=== PATIENT | male | born 1975 | race Caucasian/White ===

== ENCOUNTER 2016-07-25 10:44 | Emergency (ER) | payer BC, OTHER ==
--- NOTE | ~2016-07-25 | US67 ---
[facility] A Service of [facility] RADIOLOGY TEXT RESULTS PATIENT: SCOTT STEVENSON LOCATION: SED : 75 UNIT #: [id number] AGE: [address]: Carlos Campbell MD SEX: M ORDER DR: [id number] [place] [address] [id number] E MR#: [id number] Acc #: [id number] NAME: SCOTT STEVENSON : 1975 SEX: M STUDY DATE/TIME: 07/25/2016 15:15 UNIT: SED ROOM: STUDY DESCRIPTION: Gallbladder Attending Physician: Carlos Campbell M.D. Ordering Physician: Carlos Campbell M.D. Primary Care Physician: Belinda Smith M.D. MEDICAL IMAGING REPORT This report is preliminary unless electronic signature is present. EXAM Gallbladder ultrasound, 07/25/2016. HISTORY Nausea and diarrhea with abdominal pain for the last 2 weeks. FINDINGS Sonographic evaluation was performed of the right upper quadrant in multiple planes. Comparison is made with CT abdomen, 01/21/2016. The tail of the pancreas is obscured by bowel gas. The visualized pancreas is normal. The liver parenchyma is homogeneous without a focal mass. The right kidney is morphologically normal and nonobstructed. The main portal vein is patent by Doppler. The common duct is difficult to see, but appears to be normal, measuring about 2 mm in internal diameter. No gallstones are seen, and there is no gallbladder wall thickening. There may be a small amount of gallbladder sludge. IMPRESSION There may be a small amount of gallbladder sludge, but no definite gallstones are seen, and there is no gallbladder wall thickening or biliary obstruction. Dictated by... Carlos Sellers Jr., M.D. [facility] A Service [facility] RADIOLOGY TEXT RESULTS PATIENT: SCOTT STEVENSON LOCATION: SED : 75 UNIT #: [id number] AGE: [address]: Carlos Campbell MD SEX: M ORDER DR: THIS IS AN ELECTRONICALLY VERIFIED REPORT Carlos Sellers Jr., M.D. at 07/27/2016 8:11 AM KELLY/obdulia TD: 07/25/2016 18:50 JOB #: [id number] MEDICAL IMAGING REPORT
--- NOTE | ~2016-07-25 | EKG ---
PATIENT: SCOTT STEVENSON UNIT #: [id number] Ventricular Rate: 71 BPM Atrial Rate: 71 BPM P-R Interval: 156 ms QRS Duration: 94 ms Q-T Interval: 378 ms QTC Calculation(Bezet): 410 ms P [place]: 56 degrees Calculated R [place]: 46 degrees Calculated T [place]: 44 degrees Diagnosis Line: Normal sinus rhythm Diagnosis Line: Normal ECG Diagnosis Line: When compared with ECG of 10-JUN-2015 18:28, Diagnosis Line: No significant change was found Diagnosis Line: Confirmed by ANGELICA LUNA MD ([id number]) on Diagnosis Line: 07/26/2016 12:22:23 PM INTERPRETING MD: RANDY
--- NOTE | ~2016-07-25 | EKG ---
PATIENT: SCOTT STEVENSON UNIT #: [id number] Ventricular Rate: 67 BPM Atrial Rate: 67 BPM P-R Interval: 146 ms QRS Duration: 92 ms Q-T Interval: 376 ms QTC Calculation(Bezet): 397 ms P [place]: 55 degrees Calculated R [place]: 29 degrees Calculated T [place]: 37 degrees Diagnosis Line: Normal sinus rhythm Diagnosis Line: Normal ECG Diagnosis Line: When compared with ECG of 25-JUL-2016 09:52, Diagnosis Line: (unconfirmed) Diagnosis Line: No significant change was found Diagnosis Line: Confirmed by SOBEIDA HAMM MD ([id number]) on 07/25/2016 Diagnosis Line: 6:04:27 PM INTERPRETING MD: HANSEL CORDOVA
--- NOTE | ~2016-07-25 | CR63 ---
[facility] A Service of [facility] RADIOLOGY TEXT RESULTS PATIENT: SCOTT STEVENSON LOCATION: SED : 75 UNIT #: [id number] AGE: [address]: Carlos Campbell MD SEX: M ORDER DR: [id number] [place] [id number] E MR#: [id number] Acc #: [id number] NAME: SCOTT STEVENSON : 1975 SEX: M STUDY DATE/TIME: 07/25/2016 10:44 UNIT: SED ROOM: STUDY DESCRIPTION: CR Chest 2 View Attending Physician: Carlos Campbell M.D. Ordering Physician: Carlos Campbell M.D. Primary Care Physician: Belinda Smith M.D. MEDICAL IMAGING REPORT This report is preliminary unless electronic signature is present. EXAM Chest PA and lateral HISTORY Chest pain for 2 weeks, dizziness and epigastric pain worse this morning. PA and lateral views are obtained. Cardiovascular configuration of the chest appears normal and the lungs are clear. CONCLUSION No active disease. Dictated by... Kale Ovalle M.D. THIS IS AN ELECTRONICALLY VERIFIED REPORT Kale Ovalle M.D. at 07/25/2016 5:06 PM DEVIN/naima TD: 07/25/2016 12:43 JOB #: [id number] MEDICAL IMAGING REPORT
[~2016-07-25 10:44] MED LIST: NO MEDICATIONS
[2016-07-25 10:57] LABS: BASOPHIL# 0.1 X10e3 (0-0.3); BASOPHIL% 0.7 % (0-2.5); DIFF IND NO; EOSINOPHIL# 0.3 X10e3 (0-0.7); EOSINOPHIL% 3.3 % (0.0-7.0); HEMOGLOBIN 15.8 gm/dL (13.0-16.0); LYMPHOCYTE# 1.8 X10e3 (1.0-3.5); MEAN CELL VOLUME 88.9 FL (83-96); MEAN CORPUSCULAR HEMOGLOBIN 29.9 PG (28-34); MEAN CORPUSCULAR HGB CONC 33.7 g/dL (30-36); MEAN PLATELET VOLUME 8.6 FL (6.5-11.5); MONOCYTE# 0.7 X10e3 (0-1.0); MONOCYTE% 7.5 % (3.0-12.0); NEUTROPHIL# 6.1 X10e3 (1.5-7.1); NEUTROPHIL% 68.5 % (40-75); PLATELET COUNT 235 X10e3 (140-420); RED BLOOD COUNT 5.29 X10e (3.90-5.60); RED CELL DISTRIBUTION WIDTH 13.2 % (11.0-15.5); WHITE BLOOD COUNT 8.9 X10e3 (4.0-10.5)
[2016-07-25 11:05] LABS: POC - CKMB <1.0 ng/mL (0.0-7.9); POC - MYOGLOBIN 51.1 ng/mL (0.0-169.0); POC - TROPONIN <0.05 ng/mL (<=0.05)
[2016-07-25 11:16] LABS: ALBUMIN SERUM 4.5 g/dL (3.5-5.0); ALKALINE PHOSPHATASE 57 U/L (32-92); ALT (SGPT) 26 U/L (10-40); AST (SGOT) 23 U/L (10-42); BILIRUBIN,TOTAL 0.4 mg/dL (0.2-2.0); BLOOD UREA NITROGEN 13 mg/dL (9-23); BUN/CREATININE RATIO 18.57; CALCIUM SERUM 9.5 mg/dL (8.4-10.2); CARBON DIOXIDE 30 mmol/L (22-31); CHLORIDE 102 mmol/L (100-111); CREATININE SERUM 0.7 mg/dL (0.6-1.4); GLOM FILT RATE Estimated ABOVE60 mL/min (>60); GLUCOSE FASTING 105 mg/dL (70-110); LIPASE 33 U/L (22-51); PROTEIN TOTAL SERUM 7.5 g/dL (6.0-8.3); SODIUM 140 mmol/L (135-145)
[2016-07-25 11:31] LABS: BILIRUBIN, DIRECT <0.1 mg/dL (0.0-0.2); BILIRUBIN,INDIRECT 0.3 mg/dL (0.0-0.9)
[2016-07-25 13:32] LABS: POC - CKMB 1.2 ng/mL (0.0-7.9); POC - MYOGLOBIN 59.1 ng/mL (0.0-169.0); POC - TROPONIN <0.05 ng/mL (<=0.05)
[2016-10-06] MEDS ORDERED: OMEPRAZOLE40 M1 PO (13:38)
[2016-10-06] MEDS ORDERED: PROBIOTIC1 EAC5 PO (13:39)
[2016-10-06] MEDS ORDERED: ALEVE220 M1 PO (13:39)
[2016-10-07] MEDS ORDERED: OMEPRAZOLE40 M1 PO (07:57)
== END 2016-07-25 16:17 | disposition home or self-care (01) ==
LOC: SED 10:44
PROVIDERS: Emergency Medicine
DX: K29.00 Acute gastritis without bleeding (principal); E78.5 Hyperlipidemia, unspecified; I10 Essential (primary) hypertension; Z91.018 Allergy to other foods
CPT/HCPCS: 36415; 71020; 76705; 80048; 80076; 82553; 83690; 83874; 84484; 85025; 93005; 99284

== ENCOUNTER → 2016-08-11 | Outpatient (CLI) | payer BC ==
[~2016-08-11] MED LIST changes: +ALEVE220 M1 PO; +OMEPRAZOLE40 M1 PO; +PROBIOTIC1 EAC5 PO
--- NOTE | ~2016-08-11 | NM22 ---
[facility] A Service of [facility] RADIOLOGY TEXT RESULTS PATIENT: SCOTT STEVENSON LOCATION: UC : 75 UNIT #: [id number] AGE: [address]: Belinda Smith MD SEX: M ORDER DR: [id number] [facility] [address]. [place], [place] [address] [id number] O MR#: [id number] Acc #: [id number] NAME: SCOTT STEVENSON : 1975 SEX: M STUDY DATE/TIME: 08/11/2016 9:44 UNIT: CNUC ROOM: STUDY DESCRIPTION: LORI Hepatobiliary W GB Pharm Attending Physician: Belinda Smith M.D. Referring Physician: Belinda Smith M.D. Ordering Physician: Belinda Smith M.D. Primary Care Physician: Belinda Smith M.D. MEDICAL IMAGING REPORT This report is preliminary unless electronic signature is present EXAM Hepatobiliary scan. HISTORY Abdominal bloating, nausea, epigastric abdominal pain beginning 5 weeks ago. PROCEDURE Patient was administered 5.7 mCi technetium-99m Choletec. Imaging of the upper abdomen was performed for 60 minutes. Then patient was administered 1.7 mcg of Kinevac IV, per protocol. COMPARISON STUDIES Right upper quadrant ultrasound, 07/25/2016. FINDINGS Gallbladder fills by 30 minutes. Liver shows symmetric extraction and excretion of radiotracer. There is activity in the biliary system and bowel. Ejection fraction is 89% at 30 minutes. IMPRESSION Normal. Dictated by... Luis Moreno M.D. THIS IS AN ELECTRONICALLY VERIFIED REPORT Luis Moreno M.D. at 08/12/2016 2:11 PM PAMELA/obdulia [facility] A Service of [facility] RADIOLOGY TEXT RESULTS PATIENT: SCOTT STEVENSON LOCATION: [facility] : 75 UNIT #: [id number] AGE: [address]: Belinda Smith MD SEX: M ORDER DR: TD: 08/11/2016 17:19 JOB #: [id number] MEDICAL IMAGING REPORT COPY
== END | disposition home or self-care (01) ==
LOC: CNUC 08:52
DX: R10.11 Right upper quadrant pain (principal)
CPT/HCPCS: 78227; A9537; J2805

== ENCOUNTER → 2016-10-07 | Day surgery (SDC) | payer BC ==
--- NOTE | ~2016-10-07 | OR ---
Unit #: [id number] #: [id number] Patient: SCOTT STEVENSON [id number] [address] [place], [place] [address] [id number] O MR#: [id number] NAME: SCOTT STEVENSON ROOM: Date of Procedure: 10/07/2016 Admission Date: 10/07/2016 Surgeon: Erick Pardo M.D. : 1975 Attending Physician: Erick Pardo M.D. Primary Care Physician: Belinda Smith M.D. OPERATIVE REPORT PREOPERATIVE DIAGNOSES Dysphagia and episodes of bolus food impaction. PROCEDURES PERFORMED Upper gastrointestinal endoscopy and a dilation using a TTS balloon as well as upper gastrointestinal endoscopy and biopsies. POSTOPERATIVE DIAGNOSES 1. The patient had classic changes of eosinophilic esophagitis. The entire esophagus was stenosed. 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 These were dilated using a 15- to -18 mm TTS balloon up to 16.5 mm. Extreme caution was used in dilation. 2. Mild antral gastritis. 3. Rest of the examination up to third part of duodenum was normal. Biopsies were obtained from the antrum for CLOtest. In addition, biopsies were also obtained from the distal esophageal mucosa and sent for histology to look for evidence of eosinophilic esophagitis. RECOMMENDATIONS Omeprazole 40 mg p.o. b.i.d. The patient will come back for a repeat dilation in 8 weeks. At that time, topical fluticasone will be instituted if the patient is still symptomatic. He was also strongly advised to chew his food really well and eat slow as this condition is not likely to resolve quickly. SEDATION USED MAC. DESCRIPTION OF PROCEDURE Following detailed explanation of the potential risks and complications of an upper endoscopy, namely perforation, bleeding, and complication related to sedation, the patient was brought to GI lab and laid in the left lateral decubitus position. Lubricated tip of the Olympus video upper endoscope was passed through the bite block into the proximal esophagus under direct vision. The entire esophageal mucosa was examined. The patient was noted to have multiple strictures in the distal esophagus with classic changes of eosinophilic esophagitis with stenosis of the entire esophagus. In addition, multiple circular ridges were noted. The scope was then advanced into the gastric cavity and the latter was insufflated. Mucosa of the fundus, body, and antrum was examined. Mild prepyloric antral erythema erosions were noted indicating gastritis. Pylorus was intubated with visualization of the normal duodenal bulb and second and Unit #: [id number] #: [id number] Patient: SCOTT STEVENSON third part of the duodenum. Upon withdrawal and retroflexion, incisura, cardia, and greater curve was examined and biopsy was obtained from the antrum for CLOtest. The scope was then withdrawn in the distal esophagus. Multiple biopsies were also obtained from distal esophageal mucosa and sent for histology. A 15- to -18 mm TTS balloon was then passed and successive dilation using insufflation was achieved up to 16.5 mm. Mucosal tears were noted and one of these was closed using an Endoclip. Minimal bleeding was noted which stopped spontaneously over the next couple of minutes. The area was carefully washed before the scope was withdrawn all the way up to pharynx and no additional findings were noted. The patient tolerated the procedure without any postprocedure complications. Dictated by... Abdelrahman Oden/razia TD: 10/08/2016 01:13 JOB #: [id number] OPERATIVE REPORT Page 1 of 1 X Erick Pardo MD X PROCEDURE OPERATIVE NOTE
== END | disposition home or self-care (01) ==
LOC: COPS 06:03
DX: K22.2 Esophageal obstruction (principal); K29.70 Gastritis, unspecified, without bleeding; K21.9 Gastro-esophageal reflux disease without esophagitis; I10 Essential (primary) hypertension; Z91.018 Allergy to other foods; Z79.899 Other long term (current) drug therapy
CPT/HCPCS: 87077; 88305; J2250